=== PATIENT | female | born 1990 | race Caucasian/White ===

== ENCOUNTER 2017-12-25 09:48 | Emergency (ER) | payer BC ==
[~2017-12-25] VITALS: Ht 162.5 cm; Wt 72.6 kg
[~2017-12-25 09:48] MED LIST: BACTRIM DS 8001 TA1 PO; NAPROSYN500 MG PO; PRENTAL 1 PLUS1 TAB PO; PYRIDIUM200 MG PO
== END 2017-12-25 10:28 | disposition home or self-care (01) ==
LOC: ED 09:48
DX: S46.811A Strain of other muscles, fascia and tendons at shoulder and upper arm level, right arm, initial encounter (principal); X58.XXXA Exposure to other specified factors, initial encounter; Y93.89 Activity, other specified; Y92.89 Other specified places as the place of occurrence of the external cause; Y99.8 Other external cause status

== ENCOUNTER 2018-01-01 18:31 | Emergency (ER) | payer BC ==
[~2018-01-01] VITALS: Wt 71.2 kg
[2018-01-01] MEDS ORDERED: MEDROL DOSEPAK4 MG PO (20:19)
[2018-01-01] MEDS ORDERED: CYCLOBENZAPRINE10 MG PO (20:19)
[2018-01-01] MEDS ORDERED: NAPROSYN500 MG PO (20:19)
== END 2018-01-01 20:21 | disposition home or self-care (01) ==
LOC: ED 18:31
DX: M54.12 Radiculopathy, cervical region (principal); Z98.890 Other specified postprocedural states

== ENCOUNTER 2018-10-22 20:52 | Emergency (ER) | payer BC ==
[~2018-10-22] VITALS: Ht 162.5 cm; Wt 68.0 kg
[~2018-10-22 20:52] MED LIST changes: +CYCLOBENZAPRINE10 MG PO; +MEDROL DOSEPAK4 MG PO
[2018-10-22] MEDS ORDERED: AMOXICILLIN500 M2 PO (22:05)
== END 2018-10-22 22:12 | disposition home or self-care (01) ==
LOC: ED 20:52
DX: J32.9 Chronic sinusitis, unspecified (principal); J02.9 Acute pharyngitis, unspecified; H92.03 Otalgia, bilateral

== ENCOUNTER → 2019-03-22 | Outpatient (CLI) | payer BC ==
[~2019-03-22] MED LIST changes: +AMOXICILLIN500 M2 PO; +ANAPROX DS550 MG PO
[2019-03-25 06:06] LABS: TB1 Ag VALUE 0.06 IU/mL (.)
== END | disposition home or self-care (01) ==
LOC: LAB 09:51
PROVIDERS: Family Medicine
DX: R76.11 Nonspecific reaction to tuberculin skin test without active tuberculosis (principal)

== ENCOUNTER 2019-04-01 20:24 | Emergency (ER) | payer BC ==
[~2019-04-01] VITALS: Ht 162.5 cm; Wt 72.6 kg
[~2019-04-01 20:24] MED LIST changes: -ANAPROX DS550 MG PO
[2019-04-01] MEDS ORDERED: ANAPROX DS550 MG PO (22:10)
== END 2019-04-01 22:09 | disposition home or self-care (01) ==
LOC: ED 20:24
DX: S60.211A Contusion of right wrist, initial encounter (principal); Z79.899 Other long term (current) drug therapy; Z79.2 Long term (current) use of antibiotics; W22.8XXA Striking against or struck by other objects, initial encounter; Y93.89 Activity, other specified; Y92.89 Other specified places as the place of occurrence of the external cause; Y99.8 Other external cause status

== ENCOUNTER → 2021-02-02 | Outpatient (CLI) | payer SELFPAY ==
[~2021-02-02] MED LIST changes: +ANAPROX DS550 MG PO
== END | disposition home or self-care (01) ==
LOC: RAD 09:55
PROVIDERS: ATTEND Internal Medicine
DX: Z02.1 Encounter for pre-employment examination (principal)

== ENCOUNTER → 2021-02-04 | Outpatient (CLI) | payer OTHER | END | disposition home or self-care (01) | LOC: RAD 15:14 | PROVIDERS: ATTEND Nurse Practitioner Family | DX: M25.571 Pain in right ankle and joints of right foot (principal) ==